=== PATIENT | male | born 1960 | race Caucasian/White ===

== ENCOUNTER 2018-06-15 18:48 | Outpatient (REF) | payer BC, SELFPAY ==
[2018-06-15 21:42] LABS: ALT 47 U/L (12-78); AST 52 U/L (15-37); Albumin 3.7 g/dL (3.4-5.0); Alkaline Phosphatase 85 U/L (46-116); Anion Gap 9.2 mmol/L (3-11); BUN 21 mg/dL (7-18); Bilirubin, Total 0.2 mg/dL (0.2-1.0); CO2 28.8 mmol/L (21.0-32.0); CREATININE 0.93 mg/dL (0.70-1.30); Calcium 8.9 mg/dL (8.5-10.1); Chloride 103 mmol/L (98-107); Cholesterol 221 mg/dL (50-200); Glucose 80 mg/dL (70-100); HDL Cholesterol 79 mg/dL (40-60); LDL CHOLESTEROL 110 mg/dL (<100); Potassium 3.8 mmol/L (3.5-5.1); Sodium 141 mmol/L (136-145); Total Protein 7.4 g/dL (6.4-8.2); Triglyceride 132 mg/dL (30-150)
== END 2018-06-15 19:08 ==
LOC: NCHCN 18:48
PROVIDERS: PCP Family Medicine; Visit Provider Family Medicine
DX: I10 Essential (primary) hypertension (principal); G89.29 Other chronic pain
CPT/HCPCS: 80053; 80061; 83721

== ENCOUNTER 2019-11-10 16:27 | Outpatient (REF) | payer OTHER, SELFPAY ==
[2019-11-10 21:37] LABS: Anion Gap 10.3 mmol/L (3-11); BUN 23 mg/dL (7-18); CO2 27.7 mmol/L (21.0-32.0); CREATININE 1.12 mg/dL (0.70-1.30); Calcium 8.9 mg/dL (8.5-10.1); Chloride 103 mmol/L (98-107); Glucose 101 mg/dL (74-106); Potassium 3.7 mmol/L (3.5-5.1); Sodium 141 mmol/L (136-145)
[2019-11-10 22:15] LABS: COMMENT (LAB VIEW ONLY) 99.79 mg/dL; Microalb ug/mg Crea 10.7 ug/mg Cr
== END 2019-11-10 16:47 ==
LOC: NCHCN 16:27
PROVIDERS: PCP Family Medicine; Visit Provider Nurse Practitioner Family
DX: I10 Essential (primary) hypertension (principal)
CPT/HCPCS: 80048; 82043; 82570